=== PATIENT | male | born 1940 | race Caucasian/White ===

== ENCOUNTER 2016-10-02 15:36 | Emergency (ER) | payer OTHER ==
[~2016-10-02] VITALS: Ht 175.3 cm; Wt 90.7 kg
[2016-10-02] MEDS ORDERED: LIPITOR40 MG PO (16:02)
[2016-10-02] MEDS ORDERED: PROPRANOLOL 1010 MG PO (16:02)
[2016-10-02] MEDS ORDERED: CELEXA20 MG PO (16:02)
[2016-10-02] MEDS ORDERED: PROTONIX40 M1 PO (16:03)
[2016-10-02] MEDS ORDERED: LEVOTHYROXIN0.075 MG PO (16:03)
[2016-10-02] MEDS ORDERED: XANAX 0.25 MG0.25 MG PO (16:03)
[2016-10-02] MEDS ORDERED: MYSOLINE50 MG PO (16:03)
[2016-10-02] MEDS ORDERED: REMERON15 MG PO (16:03)
[2016-10-02] MEDS ORDERED: SPIRONOLACTONE25 M1 PO (16:04)
[2016-10-02] MEDS ORDERED: FLONASE 0.05%50 MCG NASAL (17:17)
[2016-10-02 17:24] VITALS: BP 146/81
== END 2016-10-02 17:24 | disposition home or self-care (01) ==
LOC: ER 15:36
DX: B27.90 Infectious mononucleosis, unspecified without complication (principal); J01.90 Acute sinusitis, unspecified; F41.9 Anxiety disorder, unspecified; I10 Essential (primary) hypertension; E78.5 Hyperlipidemia, unspecified; F10.99 Alcohol use, unspecified with unspecified alcohol-induced disorder; Z91.041 Radiographic dye allergy status